=== PATIENT | female | born 1980 | race Caucasian/White ===

== ENCOUNTER 2016-08-13 05:44 | Day surgery (SDC) | payer OTHER ==
[~2016-08-13] VITALS: Ht 177.8 cm; Wt 89.4 kg
[2016-08-13] VITALS (8 sets, daily range): BP systolic 98–119; BP diastolic 56–74; PULSE 67–77; RESP 15–20; O2SAT 95–100
[2016-08-13] MEDS: Lactated Ringer's 1,000 ML IV SCH ×2 (05:05→07:18)
[~2016-08-13 05:44] MED LIST: CeFAZolin Inj 2 GM in IV Premix 1 EACH IV ONE; PNV1TABL81 PO
[2016-08-13] MEDS ORDERED: Lidocaine PF 1% 30 mL Inj ONE (05:45)
[2016-08-13] MEDS ORDERED: fentaNYL-PF 50 mCg/mL 2 mL Inj ONE (05:45)
[2016-08-13] MEDS ORDERED: Dexamethasone 4 mg/mL Inj ONE (05:45)
[2016-08-13] MEDS ORDERED: Propofol 10,000 mCg/mL 20 mL Inj ONE (05:45)
[2016-08-13] MEDS ORDERED: Ondansetron 2 mg/mL 2 mL Inj ONE (05:45)
[2016-08-13] MEDS ORDERED: CeFAZolin Inj 2 GM in IV Premix 1 EACH IV ONE (06:00)
[2016-08-13] MEDS ORDERED: Lactated Ringer's 500 ML IV PRN (07:16)
[2016-08-13] MEDS ORDERED: Lactated Ringer's 1,000 ML IV SCH (07:16)
--- NOTE | 2016-08-13 07:16 | PCM.HPANE ---
Patient Data Date of Service: August 13, 2016 (0715) Surgeon Admitting Provider: Attending Provider:Sage Haji MD Primary Care Physician:Orlando Sandoval MD Other Provider:Yojana Lynch Anesthesia Reason for Visit Umbilical Hernia Ht/WT & BMI Height (Feet): 5 Height (Inches): 10.00 Weight (Kilograms): 89.4 Body Mass Index 28.00 Allergies Coded Allergies: No Known Allergies (Verified Allergy, Unknown, 08/10/16) Past Anesthesia History Anesthesia History: Denies:: Abnormal Airway, Anesthesia Reactions, Difficult Intubation, Fam Anesthesia Reaction, Fam Malignant Hypertherm, Malignant Hyperthermia Diabetes History Hx Diabetes?: No MRSA MRSA: No Medications Home Meds Incl Beta Nancy: No Reported Medications Pnv No.122/Iron/Folic Acid ( Multi Tablet)27 Mg Iron-800 Mcg Tablet1 Each PO DAILY 08/10/16 Discontinued Reported Medications Ascorbic Acid-Expunged Drug, Do Not Renew! (Vitamin C-Expunged Drug, Do Not Renew!)500 Mg [id number] Mg PO DAILY 04/05/13 Pnv Comb.no58/Iron Bisgly/Fa-Expunged Drug, D (-Expunged Drug, Do Not Renew!)1 Each Capsule1 Each PO DAILY 04/05/13 Discontinued Scripts [Docusate Sodium] (Colace)100 MG CAPSULE No Conflict Gesmg333 Mg PO BID #30 CAPSULE Ref 1 Prov:Orlando Sandoval MD 08/08/14 [Ibuprofen] (Motrin)800 MG TABLET No Conflict Cutbe829 Mg PO Q6H PRN For Pain # 30 TABLET Ref 1 Prov:Orlando Sandoval MD 08/08/14 [Oxycodone/Acetaminophen] (Percocet 5-325)1 TAB TABLET No Conflict Check1-2 Tab PO Q4H PRN For Pain #30 TABLET Prov:Orlando Sandoval MD 08/08/14 History History of ENT Problems?: No HEENT History: Denies:: Abnormal Airway Difficult Intubation Dysphagia Hearing Problem Sinus Problem TMJ Denture Type: None Teeth Condition: Within Normal Limits Hx of Heart Problems?: No Cardiovascular History: Denies:: Heart Murmur (ABNL ECHO IN [place]-REPEAT 2012 WNL EF 55-60% ) Hypertension Valvular Heart Disease Hx of Respiratory Problem?: No Respiratory History: Positive for:: Cough Denies:: Use of C-PAP Machine Hx Neurologic Problems?: No Hx of GI Problems?: Yes Other GI Pertinent History: UMBILICAL HERNIA=CURRENT PROBLEM Hx of Problems?: Yes Genitourinary History: Positive for:: Urinary Tract Infection (HX OF) Female Hx: Positive for:: Endometriosis Denies:: Currently Skin History: Denies:: History Skin Disorders? Pressure Ulcers Hx Musculoskeletal Problems?: No Hx of Psycho/Social Problems?: No Hx Surgeries?: Yes (C/S X3,LAP ENDOMETRIAL ABLATION X3.SX D&C) Other History: Positive for:: Hospitalization Denies:: Cancer Endocrine Disease Thyroid Disease History Blood Transfusions: Denies:: Blood Transfusions Hx Diabetes: No Hx Alcohol Use: No Smoking Status: Never Smoker Have You Smoked inLast 12 mo: No Stop/Bang S-Snoring: Do You Snore Loudly: No T-Tired: feel tired, fatigued: No O-Obsered: Observed not breath: No P-Blood Pressure: treated: No B- Body Mass Index > 35 kg/m2: No A- Age over 50: No N- Neck Large Circumference: No G- Gender Male: No BELLE Total Score: 0 BELLE Risk Assessment: Low Risk, <3 Yes Risk Assessment Category Category 1A: Patient has history of documented sleep apnea, and HAS NOT received any narcotic, sedative or anesthesia administration during this stay. Category 1B: Patient has history of documented sleep apnea, and HAS received any narcotic , sedative or anesthesia administration during this stay Category 2: Patient has SUSPECTED Obstructive Sleep Apnea, and HAS received any narcotic , sedative or anesthesia administration during this stay. Category 3: Patient has SUSPECTED Obstructive Sleep Apnea and HAS NOT received narcotic, sedative or anesthesia administration during this stay. Category 4: Outpatient in Procedural Areas with known sleep apnea or who screen positive for High Risk via the STOP/BANG questionnaire. Exam Exam Vital Signs Vital Signs Date Time Temp Pulse Resp B/P Pulse Ox O2 Delivery O2 Flow Rate FiO2 08/13/16 06:33 36.8 69 16 102/65 99 Room Air General Appearance: Alert, Oriented X3, Cooperative HEENT/AIRWAY: MP 1 Lungs: Clear to Auscultation Heart: Exam Unremarkable Meds/Labs/Diagnostics Admission Meds Current Medications Lactated Ringer's (Lr) 1,000 ml @ 120 mls/hr Q8H20M IV Last administered on t 05:05; Start 08/13/16 at 05:00; Stop 08/13/16 at 13:19 Plan Impression Patient chart reviewed, patient interviewed and anesthestic plan with risks, benefits, and alternatives discussed, and informed consent obtained. NPO per Anesth. Guidelines: Yes ASA Physical Status: ASA1 Normal Healthy Anesthetic Plan: GA Bene/Risks/Altern/Consents: Yes HP Complete Prior to Induction: Yes Héctor Corona MD August 13, 2016 07:16
[2016-08-13] MEDS ORDERED: Bupivacaine-MPF 0.5% W/EPI 30 mL Inj INFILTRATE ONE (07:18)
[2016-08-13] MEDS ORDERED: Ondansetron 2 mg/mL 2 mL Inj IVPUSH PRN (07:20)
[2016-08-13] MEDS ORDERED: EPHEDrine Sulfate 50 mg/mL Inj IVPUSH PRN (07:20)
[2016-08-13] MEDS ORDERED: MetoCLOpramide 5 mg/mL 2 mL Inj IVPUSH PRN (07:20)
[2016-08-13] MEDS ORDERED: Phenylephrine 10,000 mCg/mL Inj IVPUSH PRN (07:20)
[2016-08-13] MEDS ORDERED: HYDROmorphone 1 mg/mL Inj IVPUSH PRN (07:20)
[2016-08-13] MEDS ORDERED: Dexamethasone 4 mg/mL Inj IVPUSH PRN (07:20)
--- NOTE | 2016-08-13 08:01 | PCM.DISURG ---
Surgical Discharge Instruction Date of Service August 13, 2016 Dates of Hospitalization Date of Hospital Admission Providers Admitting Physician: Primary Care Physician: Orlando Sandoval MD Attending Physician: Sage Haji MD Discharge Diagnosis Discharge Diagnosis Umbilical hernia Diet Discharge Diet: No restrictions Activity Discharge Activity-General: No lifting >10 pounds for 4-6 weeks Dressing and Incisional Care Dressing Care: Allow Steri Stripes to fall off, Remove outer dressing after 24 hrs Hygiene: May shower after (24 hours) Follow Up Plan Follow Up Plan In the general surgery [place] postoperative clinic in 2-3 weeks for a wound check Call your provider for: Fever (over 101.5), Discharge @ incision, pus discharge Sage Haji MD August 13, 2016 08:01
--- NOTE | 2016-08-13 08:04 | PCM.SURGOP ---
Surgical Operative Report Date of Service: August 13, 2016 Pre Operative Diagnosis Umbilical hernia Post Operative Diagnosis Same Procedure: Umbilical hernia repair with mesh Surgeon and Bullet Slugs Inspector: Surgeon: Sage Haji MD Assistants: None Indication for Procedure 36-year-old woman who has had a reducible umbilical hernia for several years. She decided to wait until she was completed with childbearing to have it repaired. After discussion of risks and benefits, she agreed to proceed with umbilical hernia repair with mesh. Findings: The fascial defect measured approximately 1.5 cm in diameter, containing preperitoneal fat. As expected, the surrounding fascia had significant diastasis, but no other fascial defects. A repair was performed using the Bard Ventralex mesh, size medium Procedure Details After smooth induction of general endotracheal anesthesia, the patient was placed in the supine position with both arms out, and was prepped and draped in wide sterile fashion. A procedural pause was performed according to the SCOAP checklist, and all were found to be in agreement. A curvilinear infraumbilical incision was made. Dissection was carried down with electrocautery through the superficial subcutaneous tissue. The umbilical stalk was encircled with a hemostat. The umbilical stalk was disconnected using cautery. The hernia contents were from the umbilical stalk. The hernia sac was opened. The hernia contained preperitoneal fat. This was reduced through the fascial defect. The fascia was skeletonized. As expected, the surrounding fascia was thin consistent with diastasis, but there were no other fascial defects. The fascial defect measured 1.5 cm in diameter. There were no intra-abdominal adhesions. A repair was performed using the Bard Ventralex mesh, size medium. This was secured as an underlay using 0 Nurolon transfacial sutures circumferentially. The tails of the mesh were cut. The mesh was in good position. The fascia was closed over the mesh transversely using interrupted 0 Nurolon sutures. The umbilical stalk was resuspended to the fascia using an interrupted 3-0 Vicryl suture. The skin incision was closed with interrupted deep dermal 3-0 Vicryl sutures, and a running 4-0 Monocryl subcuticular stitch. Steri-Strips and sterile dressings were applied. At the end of the case all needle and sponge counts were correct 2. The patient was awakened from anesthesia without difficulty, and taken to the recovery room in satisfactory condition, having tolerated the procedure well. Complications There were no periprocedural complications identified. Surgical Specimen Removed: No Specimen sent to Pathology: Not applicable Anesthetic Plan: GA Grafts, Implants: Implants-See Implant Record Output, Estimated Blood Loss: 5 Blood Administration during mata: No Drains: None Catheters: None copies to: Orlando Sandoval MD, Joshua D MD August 13, 2016 08:04
--- NOTE | 2016-08-13 08:11 | PCM.ANEP1 ---
Post Anesthesia PACU Phase 1 Assessment Vital Signs 109/56, 97%, 37.1, 22, 100% Vital Signs Date Time Temp Pulse Resp B/P Pulse Ox O2 Delivery O2 Flow Rate FiO2 08/13/16 06:33 36.8 69 16 102/65 99 Room Air Anesthetic Administered: GA Level of Alertness: Awake, talking CROWE's with Equal Strength: Yes Pain: No Nausea or Vomiting: No CV Function & Hydration Stable: Yes Airway Device: none Oxygen Delivery: Simple Mask Lungs: Clear to Auscultation Dermatome Level: Full Sensation Summary uneventful GA PACU Phase 2 Assessment Complications: No Follow up Care: No Patient Instructions Provided: N/A Héctor Corona MD August 13, 2016 08:11
[2016-08-13] MEDS: fentaNYL-PF 50 mCg/mL 2 mL Inj IVPUSH PRN ×2 (08:34→08:37)
[2016-08-13] MEDS ORDERED: Lactated Ringer's 1,000 ML IV ONE (08:55)
[2016-08-13] MEDS: HYDROcodone-APAP 5-325 mg Tablet PO PRN ×2 (10:55→11:15)
== END 2016-08-13 23:59 | disposition home or self-care (01) ==
LOC: SAS 05:44
PROVIDERS: ATTEND Student in an Organized Health Care Education/Training Program
PROC: 0WUF0JZ Supplement Abdominal Wall with Synthetic Substitute, Open Approach (ICD-10-PCS; principal; 2016-08-13 07:30)
DX: K42.9 Umbilical hernia without obstruction or gangrene (principal)
CPT/HCPCS: 49585; C1781; J0690; J1100; J1885; J2175; J2250; J2405; J3010; J7120